=== PATIENT | male | born 1975 | race Caucasian/White ===

== ENCOUNTER 2016-06-09 07:26 | Emergency (ER) | payer OTHER ==
[~2016-06-09] VITALS: Ht 172.7 cm; Wt 72.0 kg
[~2016-06-09 07:26] MED LIST: AFRIN,GENASAL D15 ML BOTH NARES; AMOXICILLIN500 MG PO; BACLOFEN20 MG PO; BENADRYL25 MG PO; CATAPRES0.1 MG PO; CORTISPORIN-TC10 M1 RIGHT EAR; DILAUDID2 MG PO; DILAUDID4 MG PO; DOXYCYCLINE HY100 MG PO; FLEXERIL10 MG PO; GRALISE300 MG PO; LEVAQUIN750 MG PO; MORPHINE SULFAT15 M1 PO; MS CONTIN,ORAMO15 M1 PO; NOHOMEMEDS; OXYCODONE-APAP1 EACH PO; PEPCID20 MG PO; PERCOCET 10/1 TABLET PO; PERCOCET 5/31 TABLET PO; PREDNISONE10 MG PO; PREDNISONE20 MG PO; PROMETHAZINE HC25 M1 PO; SOMA350 MG PO; TORADOL10 MG PO; TRAZODONE HCL150 MG PO; TYLENOL EXTRA500 MG PO; TYLENOL REGULA325 MG PO; ULTRAM50 MG PO; VALIUM5 MG PO; VICODIN HP 10-1 EACH PO; ZANAFLEX4 M1 PO; ZITHROMAX Z-PA250 MG PO
[2016-06-09 08:16] VITALS: BP 151/102
== END 2016-06-09 08:17 | disposition home or self-care (01) ==
LOC: EME 07:26
DX: B34.9 Viral infection, unspecified (principal); F17.200 Nicotine dependence, unspecified, uncomplicated
CPT/HCPCS: 99281; 99284

== ENCOUNTER 2016-12-15 13:06 | Emergency (ER) | payer OTHER ==
[~2016-12-15] VITALS: Ht 172.7 cm; Wt 70.7 kg
[2016-12-15 13:55] LABS: HEMATOCRIT 45.1 % (38.0-50.0); MCHC 34.1 G/DL (30.0-36.0); MCV 93.8 FL (86-99); RBC DIS.WIDTH-CV 12.1 % (11.8-14.6); RBC DIS.WIDTH-SD 42.3 % (39-53); RED BLOOD COUNT 4.81 M/uL (4.00-5.50); WHITE BLOOD COUNT 7.1 K/uL (4.1-10.2)
[2016-12-15 14:02] LABS: CHLORIDE 102 mEq/L (99-109); POTASSIUM 3.1 mEq/L (3.7-5.4); SODIUM 139 mEq/L (136-147)
[2016-12-15 14:04] LABS: GLUCOSE 103 mg/dL (70-99)
[2016-12-15 14:05] LABS: ANION GAP 12 MEQ/L (2-14)
[2016-12-15 14:08] LABS: GFR ESTIMATE (CALCULATED) > 59 mL/min/
[2016-12-15 14:09] LABS: UREA NITROGEN (BUN) 6 mg/dL (9-23)
[2016-12-15 14:18] LABS: TROP-I INTERPRETATION NEGATIVE; TROPONIN-I < 0.01 ng/mL (0.0-0.30)
[2016-12-15 14:47] LABS: MEAN PLAT.VOLUME 11.8 uM^3 (9.0-12.4); PLATELET COUNT 138 K/uL (156-360)
[2016-12-15 16:11] LABS: TROP-I INTERPRETATION NEGATIVE; TROPONIN-I < 0.01 ng/mL (0.0-0.30)
[2016-12-15] MEDS ORDERED: NEXIUM40 MG PO (16:42)
[2016-12-15 16:51] VITALS: BP 124/88
== END 2016-12-15 16:52 | disposition home or self-care (01) ==
LOC: EME 13:06
PROVIDERS: Nurse Practitioner Family
DX: R07.89 Other chest pain (principal); E87.6 Hypokalemia; R00.2 Palpitations; F17.200 Nicotine dependence, unspecified, uncomplicated
CPT/HCPCS: 71020; 80048; 84484; 85027; 93005; 99281; 99284; J1885

== ENCOUNTER 2017-03-08 05:41 | Emergency (ER) | payer OTHER ==
[~2017-03-08] VITALS: Ht 172.7 cm; Wt 72.3 kg
[~2017-03-08 05:41] MED LIST changes: +NEXIUM40 MG PO
[2017-03-08] MEDS ORDERED: ZITHROMAX Z-PA250 MG PO (06:34)
[2017-03-08 07:01] VITALS: BP 149/82
== END 2017-03-08 07:09 | disposition home or self-care (01) ==
LOC: EME 05:41
DX: H72.91 Unspecified perforation of tympanic membrane, right ear (principal); H66.91 Otitis media, unspecified, right ear; J02.9 Acute pharyngitis, unspecified; R11.0 Nausea; Z88.0 Allergy status to penicillin; Z88.1 Allergy status to other antibiotic agents; F17.200 Nicotine dependence, unspecified, uncomplicated
CPT/HCPCS: 87651 90; 99281; 99283

== ENCOUNTER 2017-07-28 01:48 | Observation (INO) | payer OTHER ==
[~2017-07-28] VITALS: Ht 172.7 cm; Wt 69.0 kg
[2017-07-28 02:03] LABS: HEMATOCRIT 44.2 % (38.0-50.0); HEMOGLOBIN 15.2 G/DL (12.5-16.6); MCH 32.4 PG (29.0-34.0); MCHC 34.4 G/DL (30.0-36.0); MCV 94.2 FL (86-99); RBC DIS.WIDTH-SD 41.6 % (39-53); RED BLOOD COUNT 4.69 M/uL (4.00-5.50)
[2017-07-28 02:11] LABS: CHLORIDE 102 mEq/L (99-109); POTASSIUM 3.4 mEq/L (3.7-5.4); SODIUM 142 mEq/L (136-147)
[2017-07-28 02:13] LABS: GLUCOSE 120 mg/dL (70-99)
[2017-07-28 02:17] LABS: CREATININE 0.8 mg/dL (0.6-1.3); GFR ESTIMATE (CALCULATED) > 59 mL/min/ (58.99-99999); UREA NITROGEN (BUN) 6 mg/dL (9-23)
[2017-07-28 02:24] LABS: TROP-I INTERPRETATION NEGATIVE; TROPONIN-I < 0.01 ng/mL (0.0-0.30)
[2017-07-28 02:49] LABS: ALBUMIN 4.4 g/dL (3.2-4.8)
[2017-07-28 02:50] LABS: MAGNESIUM 1.9 mg/dL (1.3-2.7)
[2017-07-28 02:52] LABS: TOTAL PROTEIN 6.7 g/dL (6.4-8.3)
[2017-07-28 02:53] LABS: TOTAL BILIRUBIN 0.5 mg/dL (0.0-1.0)
[2017-07-28 02:54] LABS: ALKALINE PHOSPHATASE 76 IU/L (3-129)
[2017-07-28 02:55] LABS: PHOSPHORUS 3.7 mg/dL (2.5-4.9)
[2017-07-28 02:57] LABS: AST (GOT) 13 IU/L (2-34); DIRECT BILIRUBIN 0.2 mg/dL (0.0-0.3)
[2017-07-28 02:58] LABS: ALT (GPT) 8 IU/L (3-49); LIPASE 48 U/L (1.0-51.0)
[2017-07-28 03:01] LABS: PLAT.SUFFICIENCY ADEQUATE; PLATELET COUNT 151 K/uL (156-360)
[2017-07-28 03:41] LABS: SERUM ETHYL ALCOHOL < 10 mg/dL
[2017-07-28 04:18] LABS: APPEARANCE CLEAR ((CLEAR)); BILIRUBIN NEGATIVE; BLOOD NEGATIVE; COLOR STRAW ((YELLOW)); GLUCOSE (STRIP) NEGATIVE; KETONES NEGATIVE; LEUKOCYTES NEGATIVE; NITRITE NEGATIVE; PROTEIN (STRIP) NEGATIVE; SPECIFIC GRAVITY 1.006 (1.000-1.030); UCUL ADDED? NO; UROBILINOGEN 0.2 MG/DL (0.2-1.0)
[2017-07-28 04:32] LABS: AMPHETAMINE NEGATIVE (500 ng/mL); BARBITURATES NEGATIVE (200 ng/mL); BENZODIAZEPINES NEGATIVE (150 ng/mL); BUPRENORPHINE PRESUMPTIVE POSITIVE (10 ng/mL); COCAINE NEGATIVE (150 ng/mL); METHADONE NEGATIVE (200 ng/mL); METHAMPHETAMINE NEGATIVE (500 ng/mL); OPIATES (MORPHINE) NEGATIVE (100 ng/mL); OXYCODONE NEGATIVE (100 ng/mL); PHENCYCLIDINE NEGATIVE (25 ng/mL); PROPOXYPHENE NEGATIVE (300 ng/mL); THC CANNABINOIDS NEGATIVE (50 ng/mL); TRICYCLIC ANTIDEPRESSANTS NEGATIVE (300 ng/mL)
[2017-07-28 06:36] VITALS: BP 139/93
== END 2017-07-28 05:55 | disposition left against medical advice (07) ==
LOC: EME 01:48 → EDOF 05:50 → ENRESERV 05:52 → EDOF 05:55 → ENRESERV 06:32
PROVIDERS: Emergency Medicine
DX: R07.9 Chest pain, unspecified (principal); R53.1 Weakness; I10 Essential (primary) hypertension; F17.200 Nicotine dependence, unspecified, uncomplicated; R42 Dizziness and giddiness; R41.3 Other amnesia; R51 Headache; Z82.3 Family history of stroke; Z88.0 Allergy status to penicillin; Z88.6 Allergy status to analgesic agent
CPT/HCPCS: 70450; 71046; 80048; 80076; 81003; 83690; 83735; 84100; 84484; 85027; 93005; 99281; 99285; G0378; G0480; J2405; J7030

== ENCOUNTER 2017-09-30 14:29 | Emergency (ER) | payer OTHER ==
[~2017-09-30] VITALS: Ht 172.7 cm; Wt 61.0 kg
[2017-09-30 15:05] LABS: HEMATOCRIT 43.6 % (38.0-50.0); HEMOGLOBIN 15.3 G/DL (12.5-16.6); MCH 32.8 PG (29.0-34.0); MCHC 35.1 G/DL (30.0-36.0); MCV 93.6 FL (86-99); RBC DIS.WIDTH-CV 12.4 % (11.8-14.6); RBC DIS.WIDTH-SD 42.5 % (39-53); RED BLOOD COUNT 4.66 M/uL (4.00-5.50); WHITE BLOOD COUNT 5.1 K/uL (4.1-10.2)
[2017-09-30 15:26] LABS: ALBUMIN 4.3 g/dL (3.2-4.8); CHLORIDE 104 mEq/L (99-109); POTASSIUM 3.1 mEq/L (3.7-5.4); SODIUM 140 mEq/L (136-147)
[2017-09-30 15:28] LABS: APPEARANCE CLEAR ((CLEAR)); BILIRUBIN NEGATIVE; BLOOD NEGATIVE; COLOR YELLOW ((YELLOW)); GLUCOSE (STRIP) NEGATIVE; KETONES NEGATIVE; LEUKOCYTES NEGATIVE; NITRITE NEGATIVE; PROTEIN (STRIP) NEGATIVE; SPECIFIC GRAVITY 1.011 (1.000-1.030); UCUL ADDED? NO; UROBILINOGEN 0.2 MG/DL (0.2-1.0)
[2017-09-30 15:28] LABS: GLUCOSE 114 mg/dL (70-99)
[2017-09-30 15:29] LABS: TOTAL PROTEIN 6.4 g/dL (6.4-8.3)
[2017-09-30 15:30] LABS: TOTAL BILIRUBIN 0.6 mg/dL (0.0-1.0)
[2017-09-30 15:32] LABS: ALKALINE PHOSPHATASE 72 IU/L (3-129); CREATININE 0.8 mg/dL (0.6-1.3); GFR ESTIMATE (CALCULATED) > 59 mL/min/ (58.99-99999)
[2017-09-30 15:33] LABS: UREA NITROGEN (BUN) 5 mg/dL (9-23)
[2017-09-30 15:34] LABS: AST (GOT) 14 IU/L (2-34)
[2017-09-30 15:35] LABS: ALT (GPT) 9 IU/L (3-49)
[2017-09-30] MEDS ORDERED: ZOFRAN4 MG PO (15:38)
[2017-09-30] MEDS ORDERED: BENTYL20 MG PO (15:38)
[2017-09-30 16:01] LABS: PLAT.SUFFICIENCY ADEQUATE
[2017-09-30 16:07] LABS: PLATELET COUNT 159 K/uL (156-360)
[2017-09-30 16:11] VITALS: BP 127/92
== END 2017-09-30 16:11 | disposition home or self-care (01) ==
LOC: EME 14:29
PROVIDERS: Nurse Practitioner Family
DX: R10.84 Generalized abdominal pain (principal); K92.1 Melena; K64.4 Residual hemorrhoidal skin tags; F17.200 Nicotine dependence, unspecified, uncomplicated; Z88.6 Allergy status to analgesic agent; Z88.0 Allergy status to penicillin
CPT/HCPCS: 74176; 80053; 81003; 85027; 99281; 99284

== ENCOUNTER 2017-10-17 23:46 | Emergency (ER) | payer OTHER ==
[~2017-10-17] VITALS: Ht 172.7 cm; Wt 60.6 kg
[~2017-10-17 23:46] MED LIST changes: +BENTYL20 MG PO; +ZOFRAN4 MG PO
[2017-10-18] MEDS ORDERED: NORCO 5/3251 TABLET PO (02:07)
[2017-10-18] MEDS ORDERED: ULTRAM50 MG PO (02:25)
[2017-10-18 02:50] VITALS: BP 96/72
== END 2017-10-18 02:52 | disposition home or self-care (01) ==
LOC: EME 23:46
DX: S63.501A Unspecified sprain of right wrist, initial encounter (principal); S63.502A Unspecified sprain of left wrist, initial encounter; S63.91XA Sprain of unspecified part of right wrist and hand, initial encounter; S63.92XA Sprain of unspecified part of left wrist and hand, initial encounter; W22.09XA Striking against other stationary object, initial encounter; Z76.5 Malingerer [conscious simulation]; G89.29 Other chronic pain; F17.200 Nicotine dependence, unspecified, uncomplicated
CPT/HCPCS: 73130; 99281; 99284

== ENCOUNTER 2017-11-18 23:18 | Emergency (ER) | payer OTHER ==
[~2017-11-18] VITALS: Ht 172.7 cm; Wt 58.7 kg
[~2017-11-18 23:18] MED LIST changes: +NORCO 5/3251 TABLET PO
[2017-11-19 00:04] LABS: HEMATOCRIT 45.8 % (38.0-50.0); HEMOGLOBIN 15.4 G/DL (12.5-16.6); MCHC 33.6 G/DL (30.0-36.0); MCV 98.1 FL (86-99); PLATELET COUNT 144 K/uL (156-360); RBC DIS.WIDTH-CV 12.8 % (11.8-14.6); RBC DIS.WIDTH-SD 46.5 % (39-53); RED BLOOD COUNT 4.67 M/uL (4.00-5.50); WHITE BLOOD COUNT 6.6 K/uL (4.1-10.2)
[2017-11-19 00:15] LABS: CHLORIDE 100 mEq/L (99-109); SODIUM 139 mEq/L (136-147)
[2017-11-19 00:16] LABS: GLUCOSE 79 mg/dL (70-99)
[2017-11-19 00:20] LABS: CREATININE 0.8 mg/dL (0.6-1.3); GFR ESTIMATE (CALCULATED) > 59 mL/min/ (58.99-99999)
[2017-11-19 00:21] LABS: UREA NITROGEN (BUN) 8 mg/dL (9-23)
[2017-11-19 00:26] LABS: TROP-I INTERPRETATION NEGATIVE; TROPONIN-I < 0.01 ng/mL (0.0-0.30)
[2017-11-19 05:25] VITALS: BP 104/64
== END 2017-11-19 05:27 | disposition home or self-care (01) ==
LOC: EME 23:18
DX: R07.89 Other chest pain (principal); J02.9 Acute pharyngitis, unspecified; R55 Syncope and collapse; R06.00 Dyspnea, unspecified; G89.29 Other chronic pain; Z79.891 Long term (current) use of opiate analgesic; F17.200 Nicotine dependence, unspecified, uncomplicated
CPT/HCPCS: 70491; 71046; 71275; 80048; 84484; 85027; 87651 90; 93005; 94640; 99281; 99284; J1100; J7030

== ENCOUNTER 2017-12-04 00:35 | Emergency (ER) | payer OTHER ==
[~2017-12-04] VITALS: Ht 172.7 cm; Wt 61.4 kg
[2017-12-04 01:13] LABS: HEMATOCRIT 43.3 % (38.0-50.0); HEMOGLOBIN 14.6 G/DL (12.5-16.6); MCH 32.7 PG (29.0-34.0); MCHC 33.7 G/DL (30.0-36.0); MCV 96.9 FL (86-99); PLATELET COUNT 142 K/uL (156-360); RBC DIS.WIDTH-CV 12.6 % (11.8-14.6); RBC DIS.WIDTH-SD 45.2 % (39-53); RED BLOOD COUNT 4.47 M/uL (4.00-5.50); WHITE BLOOD COUNT 7.5 K/uL (4.1-10.2)
[2017-12-04 01:20] LABS: CHLORIDE 107 mEq/L (99-109); POTASSIUM 3.9 mEq/L (3.7-5.4); SODIUM 141 mEq/L (136-147)
[2017-12-04 01:23] LABS: GLUCOSE 93 mg/dL (70-99); TOTAL PROTEIN 6.2 g/dL (6.4-8.3)
[2017-12-04 01:24] LABS: TOTAL BILIRUBIN 0.6 mg/dL (0.0-1.0)
[2017-12-04 01:25] LABS: SERUM ETHYL ALCOHOL < 10 mg/dL
[2017-12-04 01:26] LABS: CREATININE 0.8 mg/dL (0.6-1.3); GFR ESTIMATE (CALCULATED) > 59 mL/min/ (58.99-99999)
[2017-12-04 01:27] LABS: ALKALINE PHOSPHATASE 69 IU/L (3-129)
[2017-12-04 01:28] LABS: AST (GOT) 11 IU/L (2-34); UREA NITROGEN (BUN) 5 mg/dL (9-23)
[2017-12-04 01:30] LABS: ACETAMINOPHEN (TYLENOL) < 10 mcg/mL (10-30); ALT (GPT) 9 IU/L (3-49); SALICYLATE < 5.0 MG/DL (15-30)
[2017-12-04 04:15] VITALS: BP 135/81
== END 2017-12-04 04:42 | disposition home or self-care (01) ==
LOC: EME 00:35
PROVIDERS: Emergency Medicine
DX: F32.9 Major depressive disorder, single episode, unspecified (principal); G89.29 Other chronic pain; M54.9 Dorsalgia, unspecified; F17.200 Nicotine dependence, unspecified, uncomplicated; Z88.6 Allergy status to analgesic agent; Z88.0 Allergy status to penicillin
CPT/HCPCS: 80053; 85027; 90837; 99281; 99285; G0480